=== PATIENT | male | born 1950 | race Hispanic/Latino ===

== ENCOUNTER 2018-07-31 22:56 | Emergency (ER) | payer MEDICARE ==
[2018-08-01] MEDS ORDERED: ACETAMINOPHEN-CODEINE 300/30MG TAB ONE (00:14)
== END 2018-08-01 00:26 | disposition home or self-care (01) ==
LOC: EDH 22:56
DX: H10.9 Unspecified conjunctivitis (principal); I10 Essential (primary) hypertension; Z90.49 Acquired absence of other specified parts of digestive tract